=== PATIENT | male | born 2000 | race Caucasian/White ===

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

== ENCOUNTER 2022-06-22 01:07 | Emergency (ER) | payer OTHER, MEDICAID ==
[2022-06-22] MEDS ORDERED: TETANUS,DIPTH,PERTUSS P/F (BOOSTRIX) 0.5 ML VIAL IM ONE (01:30)
[2022-06-22] MEDS ORDERED: BSS 15 ML IR ONE (01:30)
[2022-06-22] MEDS ORDERED: FLUORESCEIN (FLUOR-I-STRIPS) 1 MG STRP OU ONE (01:30)
[2022-06-22] MEDS ORDERED: TETRACAINE 0.5% OPHTH SOLN 4 ML BTL (SINGLE DOSE ONLY) OU ONE (01:30)
[2022-06-22 01:39] VITALS: BP 135/87
--- NOTE | 2022-06-22 01:42 | ED EENT ---
History of Present Illness General Chief Complaint: Eye Problems Stated Complaint: GREASE IN LEFT EYE AT WORK Nursing Triage Note: PT ARRIVAL TO ER VIA PRIVATE VEHICLE FROM HOME WITH COMPLAINT OF BURGER GREASE IN LEFT EYE. PATIENT STATES THAT HE WAS WORKING AT THE [employer] 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 PATIENT IMMEDIATELY FLUSHED EYE AT WORK, THEN WENT HOME AND SHOWERED AND AGAIN FLUSHED EYE. PT HAVING SOME DISCOMFORT, BUT DENIES VISUAL CHANGES OTHER THAN SOME WATERING OF EYE. Source: patient History of Present Illness Date Seen by Provider: Jun 22, 2022 Time Seen by Provider: 01:22 Initial Comments PT ARRIVES VIA POV FROM HOME IN [place]--IS BROUGHT HERE BY HIS FRIEND'S MOTHER. PT WAS AT WORK TONIGHT AT [employer], AND WAS CLEANING THE GRILL AND HIS GRILL C LEANER SLIPPED AND HOT GREASE SPLASHED INTO HIS LEFT EYE. THIS OCCURRED AROUND 5 TONIGHT HE FLUSHED HIS EYES WITH WATER AT WORK AND THEN WENT HOME AND TOOK A SHOWER AND FLUSHED HIS EYE AGAIN, THEN CAME HERE. STATES HIS EYE IS FEELING MUCH BETTER THAN IT WAS--RATES PAIN A 3/10 A THIS TIME. HE DENIES ANY VISION CHANGES NO DRAINAGE FROM THE EYE NO PRIOR EYE PROBLEMS AND DOES NOT WEAR GLASSES OR CONTACTS. NO QUINN TO ANYWHERE ELSE ON BODY AND NO QUINN TO SKIN ON FACE OR AROUND THE EYE. LAST TETANUS IS UNKNOWN. NO CHRONIC MEDICAL PROBLEMS. Allergies and Home Medications Allergies Coded Allergies: No Known Drug Allergies (Verified Allergy, Unknown, 04/02/09) Patient Home Medication List Home Medication List Reviewed: Yes Atomoxetine Hcl (Strattera) 25 Mg Capsule, (Reported) Entered as Reported by: JAVIER MAX on 04/02/09 1311 Review of Systems Review of Systems Constitutional: no symptoms reported Eyes: See HPI Neurological: Anxiety Past Mbgviql-Iszdoh-Wielme Hx Patient Social History Tobacco Use?: No Use of E-Cig and/or Vaping dev: Yes E-Cig or Vaping type used: Nicotine Use of E-Cig and/or Vaping Calvin: Current Everyday User Substance use?: No Alcohol Use?: No Pt feels they are or have been: No Immunizations Up To Date Tetanus Booster (TDap): Unknown Influenza Vaccine Up-to-Date: No; Not Current Past Medical History Surgeries: No Respiratory: No Cardiac: No Neurological: No Reproductive Disorders: No Genitourinary: No Gastrointestinal: No Musculoskeletal: No Endocrine: No HEENT: No Cancer: No Psychosocial: No Integumentary: No Blood Disorders: No Visual Acuity : Eye Location: Bilaterally Vision Acuity Degree: 20/50 Physical Exam Vital Signs Vital Signs - First Documented 06/22/22 01:17 Temp 36.6 Pulse 72 Resp 16 B/P (MAP) 135/87 (103) Pulse Ox 99 O2 Delivery Room Air Height, Weight, BMI Height: '" Weight: lbs. oz. kg; BMI Method: General Appearance: WD/WN, no apparent distress, other (EXTREMELY ANXIOUS, TALKING NON-STOP AND IS VERY DRAMATIC WITH A MARKEDLY EXAGGERATED PAIN RESPONSE. ) Eyes: right eye normal inspection; left eye other (VERY SLIGHT CONJUNCTIVAL INFLAMMATION ON LEFT. NO EXTERNAL EVIDENCE OF TRAUMA TO EYE OR SURROUNDING TISSUES OR SKIN. 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 ) Skin: normal color, warm/dry, tattoos/piercings (EXTENSIVE PIERCINGS AND TATTOOS) Procedures/Interventions Eye : Location: left eye Anesthesia (gtts): Tetracaine Progress/Procedure Conclusion FLUORESCEIN STAIN WITH DYE UPTAKE TO CENTER OF LEFT CORNEA. NO OBVIOUS ULCERATION AND NO FOREIGN BODY TO THE EYE OR SURROUNDING TISSUES. Progress/Results/Core Measures Results/Orders My Orders Orders - CARLY VIVAS DO Tetracaine 0.5% Ophth Jenny Sdv (Tetracai (06/22/22 01:30) Fluorescein Strips ([id number]) (06/22/22 01:30) Balanced Salt Irrigation Soln (Bss Irrig (06/22/22 01:30) Dipht,Pertuss(Acell),Tet Adult (Boostrix (06/22/22 01:30) Rx-Besifloxacin 0.6% Ophth Marquita (Rx-Besiv (06/22/22 06:00) Rx-Besifloxacin 0.6% Ophth Marquita (Rx-Besiv (06/22/22 01:43) Medications Given in ED Current Medications Medications Dose Ordered Sig/Steffany Route Start Time Stop Time Status Last Admin Dose Admin Balanced Salt Solution 15 ml ONCE ONCE IR 06/22/22 01:30 06/22/22 01:31 DC 06/22/22 01:35 15 ML Besifloxacin 5 ml STK-MED ONCE .ROUTE 06/22/22 01:43 06/22/22 01:46 DC 06/22/22 01:48 5 ML Diphtheria/ Tetanus/Acell Pertussis 0.5 ml ONCE ONCE IM 06/22/22 01:30 06/22/22 01:31 DC 06/22/22 01:37 0.5 ML Fluorescein Sodium 1 mg ONCE ONCE OU 06/22/22 01:30 06/22/22 01:31 DC 06/22/22 01:35 1 MG Tetracaine HCl 4 ml ONCE ONCE OU 06/22/22 01:30 06/22/22 01:31 DC 06/22/22 01:35 4 ML Vital Signs/I&O 06/22/22 06/22/22 01:17 01:39 Temp 36.6 Pulse 72 69 Resp 16 16 B/P (MAP) 135/87 (103) 135/87 Pulse Ox 99 100 O2 Delivery Room Air Room Air Blood Pressure Mean: 103 Progress Progress Note : Progress Note DPT VACCINE GIVEN SENT HOME WITH ANTIBIOTIC EYE DROPS AND INSTRUCTED ON USE DISCUSSED NEED FOR FOLLOW UP WITH BOTH THE EYE DR AND [facility]ALTH FOR FURTHER EVALUATION ALSO ADVISED OF THE IMPORTANCE OF NO DRIVING OR OPERATING ANY MACHINERY, ETC. UNTIL CLEARED BY EYE DR AND OCCUPATIONAL HEALTH. Departure Impression Primary Impression: Corneal injury of left eye Additional Impression: Glbaqknwpa-wmhlxkgwx-szfiily (DPT) vaccination administered at current visit Disposition: 01 HOME, SELF-CARE Condition: Stable Departure-Patient Inst. Decision time for Depature: 01:38 Referrals: JERMAINE PIERCE OD,LOCAL PHYSICIAN (PCP) Primary Care Physician Patient Instructions: Corneal Abrasion (DC), Diphtheria and Tetanus Toxoids, and Acellular Pertussis Vaccine, How to Use Eye Drops Add. Discharge Instructions: DO NOT TOUCH OR RUB EYE NO DRIVING OR OPERATING ANY MACHINERY OR ANY EQUIPMENT UNTIL YOU ARE CLEARED BY TYLENOL 1 GRAM PLUS MOTRIN 800 MG EVERY 6 HOURS NEEDED FOR PAIN USE EYE DROPS PRESCRIBED FOLLOW UP WITH DR. PIERCE'S OFFICE ( EYE DR ) TOMORROW FOR FURTHER EVALUATION--CALL THIS MORNING TO SCHEDULE APPOINTMENT FOLLOW UP WITH OCCUPATIONAL HEALTH TODAY OR TOMORROW FOR FURTHER EVALUATION--CALL THIS MORNING TO SCHEDULE APPOINTMENT. All discharge instructions reviewed with patient and/or family. Voiced understanding. CARLY VIVAS DO Jun 22, 2022 01:42
[2022-06-22] MEDS ORDERED: RX-BESIFLOXACIN (BESIVANCE) 0.6% OPHTH SUSP 5 ML ONE (01:43)
[2022-06-22] MEDS ORDERED: RX-BESIFLOXACIN (BESIVANCE) 0.6% OPHTH SUSP 5 ML OS SCH (06:00)
== END 2022-06-22 01:59 | disposition home or self-care (01) ==
LOC: EDUNIT# 01:07 → ER 01:12
DX: S05.8X2A Other injuries of left eye and orbit, initial encounter (principal); F17.290 Nicotine dependence, other tobacco product, uncomplicated; Z23 Encounter for immunization; Z28.310 Unvaccinated for COVID-19; X58.XXXA Exposure to other specified factors, initial encounter; Y93.G1 Activity, food preparation and clean up; Y92.59 Other trade areas as the place of occurrence of the external cause; Y99.0 Civilian activity done for income or pay
CPT/HCPCS: 90715; 99284